=== PATIENT | female | born 1965 | race African-American/Black ===

== ENCOUNTER → 2016-08-14 | Outpatient (CLI) | payer OTHER ==
[~2016-08-14] MED LIST: IOHEXOL 240 MG/ML 50ML VIAL. ONE; IOHEXOL 300 MG/ML 75 ML VIAL. IV ONE
--- NOTE | 2016-08-14 09:39 | RAD ---
EXAM: CT abdomen/pelvis with contrast. HISTORY: Abdominal pain and nausea. TECHNIQUE: Computed tomography of the abdomen and pelvis was performed after the intravenous administration of 75 mL Omnipaque 300. COMPARISON: None. FINDINGS: Lung windows through the visualized portions of the bases reveal mild atelectasis. Bone windows reveal no suspicious lesions. The gallbladder is surgically absent. The common duct measures 10 mm. It tapers normally at the ampulla. The pancreas, liver, adrenal glands, spleen and kidneys are unremarkable. There are no pathologically enlarged lymph nodes. There are multiple uterine fibroids measuring up to 4.0 cm at the fundus. The endometrial stripe is somewhat distorted. Physiologic follicles are noted in both ovaries. The appendix is not inflamed. There is no obstruction. IMPRESSION: 1. Mild extrahepatic biliary dilatation status post cholecystectomy. Correlate for cholestasis to assess significance. 2. Multiple uterine fibroids measure up to 4.0 cm. *One or more of the following individualized dose reduction techniques were utilized for this examination: 1. Automated exposure control. 2. Adjustment of the mA and/or kV according to patient size. 3. Use of iterative reconstruction technique.
== END | disposition home or self-care (01) ==
LOC: CT 07:38
PROVIDERS: ATTEND Physician Assistant
DX: K85.80 Other acute pancreatitis without necrosis or infection (principal); M54.89 Other dorsalgia; D25.9 Leiomyoma of uterus, unspecified; Z90.49 Acquired absence of other specified parts of digestive tract
CPT/HCPCS: 74177; Q9966; Q9967

== ENCOUNTER → 2019-09-21 | Outpatient (CLI) | payer OTHER ==
--- NOTE | 2019-09-21 10:10 | RAD ---
Examination: Ultrasound pelvis HISTORY: History of leiomyoma, dyspareunia, pelvic pain COMPARISON: None available FINDINGS: The uterus measures 10.15 x 5.5 x 5.0 cm. The right ovary measures 2.6 x 2.1 x 2.1 cm. The left ovary measures 2.5 x 1.6 x 2.2 cm. Blood flow identified in the right and left ovaries. Small follicles identified in the right and left ovaries. Multiple heterogeneous echogenicities identified in the uterus measuring 4.4, 3.5 cm, 1.6 cm, 3.4 cm likely multiple fibroids. IMPRESSION: 1. Multiple fibroids identified in the uterus with the largest measuring 4.4 cm. Electronically signed by: Delio Shah MD (09/21/2019 10:07 AM) [id number]
== END | disposition home or self-care (01) ==
LOC: US 08:25
PROVIDERS: ATTEND Obstetrics & Gynecology
DX: D25.9 Leiomyoma of uterus, unspecified (principal); N94.10 Unspecified dyspareunia; N18.4 Chronic kidney disease, stage 4 (severe)
CPT/HCPCS: 76830; 76856